=== PATIENT | female | born 1945 | race Caucasian/White ===

== ENCOUNTER 2025-10-16 10:12 | Outpatient (OUT) | payer MEDICARE, SELFPAY ==
--- NOTE | 2025-10-16 10:15 | MM_ITS ---
Patient Name: ARTUR BUSTOS MR#: [id number] : 1945 Exam Date: 10/16/2025 Ordering Doctor: NON-STAFF PHYSICIAN RADIOLOGY REPORT PROCEDURE: MM TOMOSYNTHESIS SCREENING BI COMPARISON: MAMMO NOAM SCREEN, 08/20/2024. MAMMO NOAM SCREEN, 06/20/2023. INDICATIONS: Screening Calculator Name NCI Breast Cancer Risk Assessment Tool 5 Year Breast Cancer Risk Not Reported. Lifetime Breast Cancer Risk Not Reported. Personal Breast Cancer No Personal Ovarian Cancer No Treatments None Family Cancers None LOCATION: [facility] BREAST COMPOSITION: The breasts are heterogeneously dense, which may obscure small masses. FINDINGS: RIGHT BREAST: No significant suspicious finding. Benign-appearing calcifications are present. LEFT BREAST: No significant suspicious finding. Benign-appearing calcifications are present. DIAGNOSTIC CATEGORY 2--BENIGN FINDING. NO CHANGE FROM COMPARISON. RECOMMENDATIONS: ROUTINE MAMMOGRAM AND CLINICAL EVALUATION IN 12 MONTHS. Dictated by: Benny Rodriguez MD on 10/16/2025 at 14:02 Approved by: Benny Rodriguez MD on 10/16/2025 at 14:10
== END 2025-10-16 10:13 | disposition home or self-care (01) ==
LOC: MAMMO 10:12
DX: Z12.31 Encounter for screening mammogram for malignant neoplasm of breast (principal)
CPT/HCPCS: 77063; 77067